=== PATIENT | female | born 1975 | race African-American/Black ===

== ENCOUNTER 2024-08-19 17:57 | Emergency (ER) | payer OTHER ==
[~2024-08-19] VITALS: Ht 167.6 cm; Wt 63.2 kg
[2024-08-19 18:25] VITALS: TEMP 36.8; O2SAT 99
[2024-08-19 18:29] VITALS: O2SAT 99
[2024-08-20] MEDS: SODIUM CHLORIDE 0.9% 1,000 ML IV ONE (00:15)
[2024-08-20 00:28] LABS: BASOPHILS % 1.1 % (0.0-2.0); EOSINOPHILS % 1.3 % (0.0-5.0); HEMATOCRIT. 40.4 % (36.0-48.0); HEMOGLOBIN. 13.2 g/dL (12.0-16.0); LYMPHOCYTES % 29.3 % (20.0-50.0); MEAN CORPUSCULAR HGB CONC 32.7 g/dL (31.0-37.0); MEAN CORPUSCULAR VOLUME 94.6 fL (81.0-99.0); MEAN PLATELET VOLUME 8.3 fl (7.4-10.4); MONOCYTES % 7.9 % (2.0-8.0); NEUTROPHILS % 60.4 % (40.0-76.0); PLATELET 246 x1000/uL (130-400); RED BLOOD CELL COUNT 4.27 mill/uL (4.2-5.4); RED CELL DISTRIBUTION WIDTH 12.9 % (11.6-14.6); WHITE BLOOD COUNT 8.4 x1000/uL (4.5-11.0)
[2024-08-20 00:34] LABS: CHLORIDE 103 mEq/L (98-107); POTASSIUM 4.1 mEq/L (3.5-5.1); SODIUM 137 mEq/L (136-145)
[2024-08-20 00:35] LABS: CALCIUM 9.5 mg/dL (8.7-10.4); CARBON DIOXIDE 25 mEq/L (21-32)
[2024-08-20 00:40] LABS: CREATININE 0.8 mg/dL (0.6-1.0); GLUCOSE 331 mg/dL (70-105); UREA NITROGEN BLOOD 12 mg/dL (9-23)
[2024-08-20 00:42] LABS: ALANINE AMINOTRANSFERASE 23 IU/L (10-49); ASPARTATE AMINOTRANSFERASE 14 IU/L (<34); BETA HYDROXYBUTYRATE 1.1 mMol/L (0.0-0.3); BILIRUBIN TOTAL 0.7 mg/dL (0.1-1.0)
[2024-08-20 01:38] VITALS: BP 129/93; PULSE 99; RESP 18
[2024-08-20] MEDS: AMOXICILLIN/POTASSIUM CLAVULANATE 875/125MG TAB PO NR (01:38)
[2024-08-20] MEDS: TRAMADOL 50MG TABLET PO ONE (01:38)
[2024-08-20] MEDS: IBUPROFEN 600MG TABLET PO ONE (01:38)
[2024-08-20] MEDS ORDERED: IOHEXOL-300 100 ML BOTTLE ONE (04:27)
== END 2024-08-20 03:28 | disposition home or self-care (01) ==
LOC: ER 17:57
DX: L03.211 Cellulitis of face (principal); K04.7 Periapical abscess without sinus; J32.0 Chronic maxillary sinusitis; E11.65 Type 2 diabetes mellitus with hyperglycemia
CPT/HCPCS: 99285; 80053; 82010; 85025; 36415; 70487; 96360; Q9967; J7030; Z7610